=== PATIENT | female | born 1955 | race American Indian/Alaskan Native ===

== ENCOUNTER 2019-04-07 22:44 | Emergency (ER) | payer SELFPAY ==
[2019-04-07] MEDS ORDERED: ONDANSETRON 4 MG ODT TAB PO PRN (23:36)
[2019-04-07] MEDS ORDERED: HALOPERIDOL LACTATE 5 MG/1 ML INJ IM PRN (23:36)
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
[2019-04-08] LABS: Hematocrit 33.4 % (30.3-42.9); Hemoglobin 11.6 gm/dl (10.1-14.3); Mean Corpuscular HGB Conc 35 % (30-34); Mean Corpuscular Volume 102 fl (79-97); Platelet Count 293 K/mm3 (140-440); Red Blood Count 3.28 M/mm3 (3.65-5.03); Red Cell Distribution Width 16.3 % (13.2-15.2)
[2019-04-08 00:18] LABS: Alanine Aminotransferase 20 units/L (7-56); Albumin 4.3 g/dL (3.9-5); BUN/Creatinine Ratio 16; Blood Urea Nitrogen 8 mg/dL (7-17); Calcium 9.4 mg/dL (8.4-10.2); Hemolysis Index 0
--- NOTE | 2019-04-08 00:26 | XRay Report ---
CHEST 1 VIEW INDICATION / CLINICAL INFORMATION: cough n/v. COMPARISON: None available. FINDINGS: SUPPORT DEVICES: None. HEART / MEDIASTINUM: No significant abnormality. LUNGS / PLEURA: No significant pulmonary or pleural abnormality. No pneumothorax. ADDITIONAL FINDINGS: There is an old healed left midclavicular fracture. IMPRESSION: 1. No significant change Signer Name: Larry Burnett MD Signed: 04/08/2019 12:21 AM Workstation Name: [id number]
[2019-04-08 07:29] VITALS: BP 118/76
== END 2019-04-08 07:28 | disposition home or self-care (01) ==
LOC: ED 22:44
DX: F10.129 Alcohol abuse with intoxication, unspecified (principal)
CPT/HCPCS: 36415; 71045; 80053; 80320; 82550; 83735; 85027; 99285; G0480

== ENCOUNTER 2019-11-25 06:20 | Outpatient (CLI) | payer MEDICAID ==
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
== END 2019-11-25 06:21 | disposition home or self-care (01) ==
LOC: XRAY 06:20
PROVIDERS: ATTEND Orthopaedic Surgery
DX: S92.342A Displaced fracture of fourth metatarsal bone, left foot, initial encounter for closed fracture (principal); S92.352A Displaced fracture of fifth metatarsal bone, left foot, initial encounter for closed fracture; S92.912A Unspecified fracture of left toe(s), initial encounter for closed fracture; M19.041 Primary osteoarthritis, right hand; M19.072 Primary osteoarthritis, left ankle and foot; R10.2 Pelvic and perineal pain; M25.522 Pain in left elbow; X58.XXXA Exposure to other specified factors, initial encounter; Y93.89 Activity, other specified; Y92.89 Other specified places as the place of occurrence of the external cause; Y99.8 Other external cause status
CPT/HCPCS: 72170

== ENCOUNTER 2020-02-20 12:19 | Outpatient (CLI) | payer MEDICAID ==
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
== END 2020-02-20 12:20 | disposition home or self-care (01) ==
LOC: XRAY 12:19
PROVIDERS: ATTEND Orthopaedic Surgery
DX: M79.604 Pain in right leg (principal)

== ENCOUNTER 2021-01-25 07:45 | Emergency (ER) | payer MEDICARE ==
[2021-01-25 07:54] VITALS: BP 118/73
[2021-01-25] MEDS ORDERED: KETOROLAC 30 MG/1 ML INJ IM ONE (07:58)
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
== END 2021-01-25 11:29 | disposition home or self-care (01) ==
LOC: ED 07:45
DX: S42.202A Unspecified fracture of upper end of left humerus, initial encounter for closed fracture (principal); I10 Essential (primary) hypertension; J44.9 Chronic obstructive pulmonary disease, unspecified; M81.0 Age-related osteoporosis without current pathological fracture; Z90.710 Acquired absence of both cervix and uterus; F17.200 Nicotine dependence, unspecified, uncomplicated; F12.90 Cannabis use, unspecified, uncomplicated; Y09 Assault by unspecified means; Y93.89 Activity, other specified; Y92.89 Other specified places as the place of occurrence of the external cause; Y99.8 Other external cause status
CPT/HCPCS: 29105; 73060; 73502; 96372; 99283; J1885

== ENCOUNTER 2021-02-22 09:56 | Observation (INO) | payer MEDICARE ==
[2021-02-21 10:47] LABS: Hematocrit 39.4 % (30.3-42.9); Hemoglobin 12.8 gm/dl (10.1-14.3); Mean Corpuscular HGB Conc 33 % (30-34); Mean Corpuscular Volume 110 fl (79-97); Platelet Count 261 K/mm3 (140-440); Red Cell Distribution Width 14.9 % (13.2-15.2)
[2021-02-21 11:05] LABS: Alanine Aminotransferase 18 units/L (7-56); Albumin 4.1 g/dL (3.9-5); Blood Urea Nitrogen 7 mg/dL (7-17); Hemolysis Index 9
[2021-02-21 11:15] LABS: BUN/Creatinine Ratio 18
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
[2021-02-22] MEDS ORDERED: ceFAZolin/Water 2 GM/20 ML 2 GM/20 ML SYRINGE IV NR (10:00)
[2021-02-22] MEDS ORDERED: LACTATED RINGERS 1,000 ML ONE (10:30)
[2021-02-22] MEDS: LACTATED RINGERS 1,000 ML IV SCH ×3 (11:00→23:55)
[2021-02-22] MEDS ORDERED: HYDROmorphone 1 MG/1 ML INJ IV PRN ×2 (11:29)
--- NOTE | 2021-02-22 11:32 | Anesthesia Day of Surgery ---
Anesthesia Day of Surgery - Day of Surgery Patient Examined: Yes Patient H&P Reviewed: Yes Patient is NPO: Yes
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
[2021-02-22] MEDS ORDERED: BUPIVACAINE/PF (0.5%) 5 MG/1 ML 30 ML VIAL INFILTRATI ONE (11:36)
[2021-02-22] MEDS ORDERED: dexAMETHasone 4 MG/ML VIAL ONE (11:36)
[2021-02-22] MEDS ORDERED: propofoL 200 MG/20 ML VIAL IV ONE (11:52)
[2021-02-22] MEDS ORDERED: SUCCINYLCHOLINE CHLORIDE 200 MG/10 ML INJ MDV ONE (11:52)
[2021-02-22] MEDS ORDERED: LIDOCAINE MPF (2%) 20 MG/1 ML VIAL 5 ML ONE (11:52)
[2021-02-22] MEDS ORDERED: ROCURONIUM 50 MG/5 ML INJ IV ONE (11:52)
[2021-02-22] MEDS ORDERED: MIDAZOLAM 2 MG/2 ML INJ IV NR (12:00)
[2021-02-22] MEDS ORDERED: fentaNYL 100 MCG/2 ML INJ IV ONE (12:29)
[2021-02-22] MEDS ORDERED: PANTOPRAZOLE 40 MG TAB PO ONE (12:30)
[2021-02-22] MEDS ORDERED: amLODIPine 10 MG TAB PO ONE (12:31)
[2021-02-22] MEDS ORDERED: fentaNYL 100 MCG/2 ML INJ ONE (13:32)
--- NOTE | 2021-02-22 14:24 | Procedure Note ---
Date of procedure: 02/22/21 Pre-op diagnosis: Displaced left proximal humerus fracture Post-op diagnosis: same Procedure: Closed reduction and insertion of intramedullary nail left proximal humerus Procedure The patient was brought to the OR and placed on the table supine following i nduction and intubation she was placed in the beachchair position. The left upper extremity was then prepped and draped in the usual sterile manner, a timeout procedure was done to identify the patient and the correct operative site. An incision was made over the greater tuberosity and was taken down sharply through skin and subcutaneous the deltoid was split along with the rotator cuff tendon. A threaded guidewire was inserted through a proximal fragment across the fracture site into the distal humeral canal, The canal was reamed to a 11.5 mm diameter this was followed by insertion of the short humeral nail measuring 8mm x 150 mm length under C-arm fluoroscopy. Using the targeting device the proximal screws were inserted into the humeral head and this was followed by gentle traction on the distal fragment along with insertion of 2 distal interlocking screws. Again AP and lateral views were obtained and showed good reduction of the fracture and placement of hardware. Following this the wound was copiously irrigated with saline solution followed by closure of the wound. Postop dressings were applied as well as an arm sling, she tolerated the procedure without complications and she was sent to postanesthesia recovery in stable condition Anesthesia: GETA Surgeon: JAS HEARD (Elza Peralta. 1st assist) Estimated blood loss: 50-100ml Pathology: none Condition: stable Disposition: PACU
[2021-02-22] MEDS ORDERED: ONDANSETRON 4 MG/2 ML INJ ONE (14:29)
[2021-02-22] MEDS ORDERED: SODIUM CHLORIDE 0.9% IRR 1,500 ML BOTTLE IR ONE (14:31)
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
--- NOTE | 2021-02-22 16:08 | Post Anesthesia Evaluation ---
- Post Anesthesia Evaluation Patient Participated: Yes Airway Patent: Yes Stable Respiratory Function: Yes Nausea/Vomiting: No Temp > 96.8F: Yes Pain Manageable: Yes Adequeate Hydration: Yes Anesthesia Complications: No Block Receding Appropriately: Yes Patient on Ventilator: No
[2021-02-22] MEDS: ONDANSETRON 4 MG/2 ML INJ IV PRN (23:53)
[2021-02-23] MEDS: MORPHINE 4 MG/1 ML INJ IV PRN ×4 (03:06→20:21)
[2021-02-23] MEDS: KETOROLAC 30 MG/1 ML INJ IV PRN ×2 (06:28→22:37)
--- NOTE | 2021-02-23 14:39 | Progress Note ---
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
[2021-02-23] MEDS: LACTATED RINGERS 1,000 ML IV SCH (20:22)
[2021-02-24] MEDS: ONDANSETRON 4 MG/2 ML INJ IV PRN (04:18)
[2021-02-24] MEDS: MORPHINE 4 MG/1 ML INJ IV PRN ×3 (04:18→13:51)
[2021-02-24 13:48] VITALS: BP 133/84
== END 2021-02-24 19:10 | disposition home or self-care (01) ==
LOC: OR 09:56 → 3A 14:13
PROVIDERS: ADMIT Orthopaedic Surgery; ATTEND Orthopaedic Surgery
DX: S42.202A Unspecified fracture of upper end of left humerus, initial encounter for closed fracture (principal); Z20.822 Contact with and (suspected) exposure to COVID-19; I10 Essential (primary) hypertension; K21.9 Gastro-esophageal reflux disease without esophagitis; F41.9 Anxiety disorder, unspecified; M81.0 Age-related osteoporosis without current pathological fracture; F32.9 Major depressive disorder, single episode, unspecified; F17.210 Nicotine dependence, cigarettes, uncomplicated; Z86.19 Personal history of other infectious and parasitic diseases; Z85.43 Personal history of malignant neoplasm of ovary; Z79.899 Other long term (current) drug therapy; Z98.890 Other specified postprocedural states; Y08.89XA Assault by other specified means, initial encounter; Y92.89 Other specified places as the place of occurrence of the external cause; Y93.89 Activity, other specified; Y99.8 Other external cause status
CPT/HCPCS: 23615; 36415; 64415; 73060; 80053; 85027; 96374; 96375; 96376; 97162; C1713; C1769; G0378; J0330; J0690; J1100; J1170; J1885; J2250; J2270; J2405; J2704; J3010; J3490; J7120; U0003; 64450

== ENCOUNTER 2021-03-25 10:32 | Outpatient (CLI) | payer MEDICARE ==
--- NOTE | 2021-03-25 13:13 | XRay Report ---
LEFT WRIST 3 VIEWS INDICATION / CLINICAL INFORMATION: Pain in left wrist. COMPARISON: None available. FINDINGS: This exam is limited by suboptimal positioning of the wrist. BONES and JOINT(S): No acute displaced fracture or dislocation. There is an old avulsion fracture of the ulnar styloid. No significant arthritis. Previously placed wires are noted along the proximal pha lanx of the middle finger. SOFT TISSUES: No significant abnormality. ADDITIONAL FINDINGS: None. IMPRESSION: 1. Limited left wrist series without identification of acute findings. 2. Additional findings as above. LEFT HUMERUS 3 VIEWS INDICATION / CLINICAL INFORMATION: FRACTURE OF UPPER END OF LEFT HUMERUS COMPARISON: Intraoperative fluoroscopy of the left humerus from 02/22/2021. Left humerus series from 02/21/2021. FINDINGS: BONES and JOINT(S): The previously seen fracture of the proximal third of the left humeral shaft is u nchanged in alignment. There is expected positioning of internal fixation of the proximal left humeru s, which appears intact. No new acute displaced fracture or dislocation is seen. No significant arthr itis. SOFT TISSUES: No significant abnormality. ADDITIONAL FINDINGS: None. IMPRESSION: 1. No new acute abnormality of the left humerus. 2. Additional findings as above. Signer Name: Abelardo Riggins MD Signed: 03/25/2021 1:08 PM Workstation Name: [id number]
== END 2021-03-25 10:33 | disposition home or self-care (01) ==
LOC: XRAY 10:32
PROVIDERS: ATTEND Orthopaedic Surgery
DX: S42.202A Unspecified fracture of upper end of left humerus, initial encounter for closed fracture (principal); M25.532 Pain in left wrist; X58.XXXA Exposure to other specified factors, initial encounter; Y93.89 Activity, other specified; Y92.89 Other specified places as the place of occurrence of the external cause; Y99.8 Other external cause status

== ENCOUNTER 2021-04-25 06:57 | Outpatient (CLI) | payer MEDICARE ==
--- NOTE | 2021-04-25 09:52 | XRay Report ---
Left knee 2 views INDICATION: Pain FINDINGS: Alignment appears normal. No acute fracture dislocation. No large joint effusion Signer Name: Arthur Ortiz MD Signed: 04/25/2021 9:48 AM Workstation Name: [id number]
--- NOTE | 2021-04-25 09:56 | XRay Report ---
Right hand 3 views INDICATION: Right hand pain FINDINGS: Old fracture deformity within the right fifth metacarpal physeal. MCP joints and IP joints appear intact. Mild degenerative change throughout IP joints. No acute fracture is identified. Small area of cortical density adjacent to the radial aspect of the MCP joint of the fifth finger is again noted. Signer Name: Arthur Ortiz MD Signed: 04/25/2021 9:52 AM Workstation Name: [id number]
--- NOTE | 2021-04-25 10:01 | XRay Report ---
RIBS BILATERAL4 VIEWS INDICATION: R07.82. COMPARISON: None. IMPRESSION: No displaced rib deformity or rib lesion is detected on x-ray. The lungs are mildly hyp erinflated but clear. There is moderate thoracolumbar scoliosis with mild degenerative changes. Signer Name: Wil Tadeo Jr, MD Signed: 04/25/2021 9:56 AM Workstation Name: [id number]
== END 2021-04-25 06:58 | disposition home or self-care (01) ==
LOC: XRAY 06:57
PROVIDERS: ATTEND Orthopaedic Surgery
DX: M19.041 Primary osteoarthritis, right hand (principal); R07.82 Intercostal pain; M25.562 Pain in left knee; M41.85 Other forms of scoliosis, thoracolumbar region; M47.814 Spondylosis without myelopathy or radiculopathy, thoracic region
CPT/HCPCS: 71110

== ENCOUNTER 2021-06-03 14:00 | Outpatient (CLI) | payer MEDICARE ==
--- NOTE | 2021-06-03 17:47 | XRay Report ---
CHEST WITH BILATERAL RIBS 5 VIEWS 1044 INDICATION: R07.82 INTERCOSTAL PAIN COMPARISON: Portable chest x-ray 04/07/2019 FINDINGS: Lung guerrier are blurred by motion. No obvious focal infiltrates are seen. Mild chronic cutler ges are noted. No pleural effusions are seen. No pneumothorax is noted. Thoracolumbar scoliosis is noted. No fracture is seen of the lateral aspect of the right seventh rib with mild callus formation. No other definite acute right-sided fractures are seen. The posterior lat eral aspects of the right sixth and seventh ribs show possible old fracture sites. Old left rib fract ures are seen at 2 sites. Signer Name: Nicolás Head MD Signed: 06/03/2021 5:43 PM Workstation Name: [email or web address]
== END 2021-06-03 14:01 | disposition home or self-care (01) ==
LOC: XRAY 14:00
PROVIDERS: ATTEND Orthopaedic Surgery
DX: R07.82 Intercostal pain (principal); M41.85 Other forms of scoliosis, thoracolumbar region
CPT/HCPCS: 71110

== ENCOUNTER 2021-06-09 10:26 | Outpatient (CLI) | payer MEDICARE ==
--- NOTE | 2021-06-09 13:25 | Mammography Report ---
DEXA BONE DENSITY SCAN INDICATION / CLINICAL INFORMATION: OSTEOPOROSIS. 65 years Female COMPARISON: None available. LUMBAR SPINE, L1-L4: - Bone mineral density (BMD) = 0.760 g/cm2. - T-score = -2.5 - Change (%) since most recent prior (if available): None available. LEFT HIP, NECK : - Bone mineral density (BMD) = 0.581 g/cm2. - T-score = -2.4 - Change (%) since most recent prior (if available): None available. IMPRESSION: 1. WHO Classification: Osteoporosis. Fracture Risk: High. 2. 10-Year Fracture Risk (FRAX) = Major Osteoporotic Not reported.% / Hip: Not reported.% FRAX generally not reported for patients with normal or osteoporotic BMD, in uqx-izndbnz-wsoynvx kai ents younger than age 50, or in patients undergoing pharmacotherapy BMD Reporting Guidelines (ISCD, 2015) BMD Reporting in Postmenopausal Women and in Men Age 50 and Older - T-scores are preferred. - The WHO densitometric classification is applicable. BMD Reporting in Females Prior to Menopause and in Males Younger Than Age 50 - Z-scores, not T-scores, are preferred. This is particularly important in children. - A Z-score of -2.0 or lower is defined as below the expected range for age, and a Z-score above -2.0 is within the expected range for age. - Osteoporosis cannot be diagnosed in men under age 50 on the basis of BMD alone. - The WHO diagnostic criteria may be applied to women in the menopausal transition. http://www.iscd.org/official-positions/6025-yxfw-hfoblbyf-positions-adult/ Signer Name: Javier Ga MD Signed: 06/09/2021 1:21 PM Workstation Name: [email or web address]
== END 2021-06-09 10:27 | disposition home or self-care (01) ==
LOC: MAMMO 10:26
PROVIDERS: ATTEND Orthopaedic Surgery
DX: M81.0 Age-related osteoporosis without current pathological fracture (principal); R92.8 Other abnormal and inconclusive findings on diagnostic imaging of breast
CPT/HCPCS: 77080

== ENCOUNTER 2021-07-12 12:20 | Outpatient (CLI) | payer MEDICARE ==
--- NOTE | 2021-07-12 15:06 | XRay Report ---
XR knees standing AP Bilateral INDICATION / CLINICAL INFORMATION: M25.562 BILATERAL KNEE PAIN. COMPARISON: X-rays on 04/25/2021 FINDINGS: BONES/JOINT(S): No acute fracture or subluxation. No significant degenerative changes. No focal bone erosions or focal osteopenia to suggest inflammatory arthropathy. SOFT TISSUES: No significant abnormality. ADDITIONAL FINDINGS: None. Signer Name: Nba Young MD Signed: 07/12/2021 3:02 PM Workstation Name: [email or web address]
== END 2021-07-12 12:21 | disposition home or self-care (01) ==
LOC: XRAY 12:20
PROVIDERS: ATTEND Orthopaedic Surgery
DX: S42.202A Unspecified fracture of upper end of left humerus, initial encounter for closed fracture (principal); X58.XXXA Exposure to other specified factors, initial encounter; Y93.89 Activity, other specified; Y92.89 Other specified places as the place of occurrence of the external cause; Y99.8 Other external cause status
CPT/HCPCS: 73565

== ENCOUNTER 2021-08-10 09:15 | Emergency (ER) | payer MEDICARE | END 2021-08-10 10:30 | disposition left against medical advice (07) | LOC: ED 09:15 | DX: Z00.00 Encounter for general adult medical examination without abnormal findings (principal); Z53.21 Procedure and treatment not carried out due to patient leaving prior to being seen by health care provider ==

== ENCOUNTER 2021-08-16 09:08 | Outpatient (CLI) | payer MEDICARE ==
--- NOTE | 2021-08-16 10:44 | XRay Report ---
LEFT HUMERUS 2 VIEWS INDICATION / CLINICAL INFORMATION: S42.A UNSPECIFIED FRACTURE OF UPPER END LEFT HUMERUS COMPARISON: Left humerus series from 03/25/2021. FINDINGS: BONES and JOINT(S): There are stable internal fixation of the proximal left humerus with evidence of interval healing of the proximal shaft fracture. No new acute findings. SOFT TISSUES: No significant abnormality. ADDITIONAL FINDINGS: None. IMPRESSION: 1. No acute findings. 2. Stable internal fixation of the left humerus with evidence of interval healing of the proximal hum eral shaft fracture. Signer Name: Abelardo Riggins MD Signed: 08/16/2021 10:39 AM Workstation Name: [email or web address]
== END 2021-08-16 09:09 | disposition home or self-care (01) ==
LOC: XRAY 09:08
PROVIDERS: ATTEND Orthopaedic Surgery
DX: S42.202A Unspecified fracture of upper end of left humerus, initial encounter for closed fracture (principal); X58.XXXA Exposure to other specified factors, initial encounter; Y93.89 Activity, other specified; Y92.89 Other specified places as the place of occurrence of the external cause; Y99.8 Other external cause status

== ENCOUNTER 2021-10-19 11:36 | Outpatient (CLI) | payer MEDICARE ==
--- NOTE | 2021-10-19 13:28 | XRay Report ---
LEFT HUMERUS 2 VIEW(S) INDICATION / CLINICAL INFORMATION: M79.602 COMPARISON: 08/16/2021 FINDINGS: BONES / JOINT(S): No acute fracture or subluxation. No significant arthritis. Patient is status post intramedullary nail through the proximal humerus. The hardware is well seated without hardware compli cation. Mild heterotopic calcification along the medial aspect of the proximal humerus. SOFT TISSUES: No significant abnormality. ADDITIONAL FINDINGS: None. Signer Name: Thierno Adan DO Signed: 10/19/2021 1:23 PM Workstation Name: [email or web address]
== END 2021-10-19 11:37 | disposition home or self-care (01) ==
LOC: XRAY 11:36
PROVIDERS: ATTEND Orthopaedic Surgery
DX: S42.202D Unspecified fracture of upper end of left humerus, subsequent encounter for fracture with routine healing (principal); M79.602 Pain in left arm; X58.XXXD Exposure to other specified factors, subsequent encounter

== ENCOUNTER 2021-11-03 08:35 | Emergency (ER) | payer MEDICARE ==
--- NOTE | 2021-11-03 10:08 | Emergency Department Report ---
ED Fall HPI - General Chief Complaint: Extremity Injury, Upper Stated Complaint: SHOULDER PAIN Time Seen by Provider: 11/03/21 10:08 Source: patient Mode of arrival: Ambulatory - History of Present Illness Initial Comments: Patient is a 66-year-old female that comes to the emergency room after falling 4 days ago. She was intoxicated at the time. Today she presented to her primary care doctor lesa chavez and he was concerned so he sent her to the emergency room. He is concerned that she might have a rib fracture. He is recommended chest CT. Patient states that it was her birthday and she had too much to drink and she fell on her left side she tried to break her fall with her left hand and is complaining of left hand pain. Patient is ambulatory to the ER. She states that she is having anterior chest wall pain. Is worse with a deep breath. MD Complaint: fall -: Sudden, days(s) Fall From: standing When Fall Occurred: # days VASCULAR TECH (4) Fall Witnessed: yes, by family Place Fall Occurred: home Loss of Consciousness: none Prolonged Down Time?: no Symptoms Prior to Fall: none Location: other (Left chest and arm) Severity: mild Severity scale (0 -10): 2 Quality: aching Context: tripped/slipped, other (While drinking) Associated Symptoms: denies. denies: headache, neck pain, numbness, weakness, shortness of breath, abdominal pain, hematuria, unable to walk, lightheaded, vertigo, confusion - Related Data Home Medications Medication Instructions Recorded Confirmed Last Taken Albuterol Sulfate [Proventil Hfa] 2 puff IH PRN PRN 02/18/21 02/22/21 02/21/21 09:00 amLODIPine [Norvasc] 10 mg PO DAILY 02/18/21 02/22/21 02/22/21 11:52 Hydrochlorothiazide 12.5 mg PO DAILY 02/22/21 02/22/21 02/21/21 09:00 Omeprazole 20 mg PO DAILY 02/22/21 02/22/21 02/21/21 09:00 Terbinafine HCl 1 tab PO DAILY 02/22/21 02/22/21 02/21/21 09:00 Previous Rx's Medication Instructions Recorded Last Taken Type HYDROcodone/APAP 5-325 [Mize 1 each PO Q6HR PRN #15 tablet 01/25/21 Unknown Rx 5/325] Oxycodone HCl/Acetaminophen 1 each PO Q6HR PRN #30 02/22/21 Unknown Rx [Percocet 10/325 mg] Allergies Allergy/AdvReac Type Severity Reaction Status Date / Time No Known Allergies Allergy Verified 02/18/21 16:41 ED Review of Systems ROS: Stated complaint: SHOULDER PAIN Other details as noted in HPI Comment: All other systems reviewed and negative ED Past Medical Hx - Past Medical History Previous Medical History?: Yes Hx Hypertension: Yes Hx GERD: Yes Hx Liver Disease: Yes (HEP C) Hx Arthritis: Yes Hx Headaches / Migraines: (FREQUENT SANTANA) Hx Asthma: Yes Hx COPD: Yes (INHALER PRN) Hx Tuberculosis: Yes (+ SKIN TEST,NO TX , NEG CXR "YEARS AGO") Additional medical history: osteoporosis - Surgical History Past Surgical History?: Yes Additional Surgical History: hysterectomy left humeral orif 02/2021 - Family History Family history: no significant - Social History Smoking Status: Current Every Day Smoker Substance Use Type: Alcohol - Medications Home Medications: Home Medications Medication Instructions Recorded Confirmed Last Taken Type HYDROcodone/APAP 5-325 [Mize 1 each PO Q6HR PRN #15 tablet 01/25/21 02/18/21 Unknown Rx 5/325] Albuterol Sulfate [Proventil Hfa] 2 puff IH PRN PRN 02/18/21 02/22/21 02/21/21 09:00 History amLODIPine [Norvasc] 10 mg PO DAILY 02/18/21 02/22/21 02/22/21 11:52 History Hydrochlorothiazide 12.5 mg PO DAILY 02/22/21 02/22/21 02/21/21 09:00 History Omeprazole 20 mg PO DAILY 02/22/21 02/22/21 02/21/21 09:00 History Oxycodone HCl/Acetaminophen 1 each PO Q6HR PRN #30 02/22/21 Unknown Rx [Percocet 10/325 mg] Terbinafine HCl 1 tab PO DAILY 02/22/21 02/22/21 02/21/21 09:00 History ED Physical Exam - General Limitations: No Limitations General appearance: alert, in no apparent distress - Head Head exam: Present: atraumatic, normocephalic - Eye Eye exam: Present: normal appearance - ENT ENT exam: Present: mucous membranes moist - Neck Neck exam: Present: normal inspection - Respiratory Respiratory exam: Present: normal lung sounds bilaterally, rhonchi, chest wall tenderness. Absent: respiratory distress, wheezes, rales, stridor, accessory muscle use, decreased breath sounds, prolonged expiratory - Cardiovascular Cardiovascular Exam: Present: regular rate, normal rhythm. Absent: bradycardia, tachycardia, systolic murmur, diastolic murmur, rubs, gallop - GI/Abdominal GI/Abdominal exam: Present: soft, normal bowel sounds - Extremities Exam Extremities exam: Present: normal inspection - Expanded Upper Extremity Exam Left Shoulder Exam: Present: normal inspection Upper Arm exam: Present: normal inspection Elbow exam: Present: normal inspection Forearm Wrist exam: Present: normal inspection Hand Wrist exam: Present: normal inspection, full ROM. Absent: tenderness, swelling, abrasion, laceration, ecchymosis, deformity, crepidus - Back Exam Back exam: Present: normal inspection - Neurological Exam Neurological exam: Present: alert, oriented X3 - Psychiatric Psychiatric exam: Present: normal affect, normal mood - Skin Skin exam: Present: warm, dry, intact, normal color. Absent: rash ED Course Vital Signs 11/03/21 08:46 Temperature 98.1 F Pulse Rate 100 H Respiratory 18 Rate Blood Pressure 141/102 [Right] ED Medical Decision Making - Lab Data Result diagrams: 11/03/21 10:18 - Radiology Data Radiology results: report reviewed, image reviewed No acute process - Medical Decision Making Labs 11/03/21 10:18 WBC 4.0 L RBC 3.33 L Hgb 13.0 Hct 36.8 MCV 110 H MCH 39 H MCHC 35 H RDW 15.8 H Plt Count 326 Vital Signs 11/03/21 08:46 Temperature 98.1 F Pulse Rate 100 H Respiratory 18 Rate Blood Pressure 141/102 [Right] Medicated with Motrin for pain. Neurologically intact. Full range of motion of her hand and arm. No abrasions lacerations or ecchymosis noted on exam Patient taking p.o. Patient has been advised to stop smoking and drinking Patient being discharged home with discharge plan of care including diet, activity, medications and follow-up. She verbalizes understanding of plan of care. - Differential Diagnosis Rule out rib fracture, hand fracture Critical care attestation.: If time is entered above; I have spent that time in minutes in the direct care of this critically ill patient, excluding procedure time. ED Disposition Clinical Impression: Alcohol use, Tobacco abuse, Hx of primary hypertension Fall Qualifiers: Encounter type: initial encounter Qualified Code(s): W19.XXXA - Unspecified fall, initial encounter Contusion Qualifiers: Encounter type: initial encounter Disposition: HOME / SELF CARE / HOMELESS Is pt being admited?: No Does the pt Need Aspirin: No Condition: Stable Instructions: Contusion, [id number] Additional Instructions: [id number] Motrin or Tylenol for pain. Follow back up with your primary care doctor. All of your imaging was normal today. Avoid alcohol. Continue your home medications Diet and activity as tolerated Stay well-hydrated with water Your blood pressure was elevated today, continue to follow it and follow-up with your primary care. Referrals: HECTOR SCHILLING MD [Primary Care Provider] - 3-5 Days Time of Disposition: 11:53
--- NOTE | 2021-11-03 11:22 | XRay Report ---
LEFT HAND 3 VIEWS INDICATION: pain. COMPARISON: None. IMPRESSION: No acute osseous or soft tissue abnormality. The proximal phalanx of the third digit is shortened with evidence of previous surgical intervention, correlate with history. No significant joint pathology is demonstrated. Signer Name: Wil Tadeo Jr, MD Signed: 11/03/2021 11:18 AM Workstation Name: [id number]
--- NOTE | 2021-11-03 11:23 | Cat Scan Report ---
CT CHEST WITHOUT CONTRAST INDICATION / CLINICAL INFORMATION: Chest pain after fall. TECHNIQUE: Axial CT images were obtained through the chest without contrast. [facility] CT dose reduction for ALARA by means of automated exposure control. COMPARISON: None available. FINDINGS: HEART: No significant abnormality. CORONARY ARTERY CALCIFICATION: Present -- Moderate. THORACIC AORTA: Mild atherosclerotic calcification without acute abnormality. MEDIASTINUM / SAMM: No significant abnormality. PLEURA: No pleural effusion. No pneumothorax. LUNGS: No acute air space or interstitial disease. Moderate emphysema. ADDITIONAL FINDINGS: None. UPPER ABDOMEN: No significant abnormality. SKELETAL SYSTEM: No appreciable acute fractures. There are several healing subacute to chronic right rib fractures. IMPRESSION: 1. No appreciable acute fracture. Multiple subacute to chronic healing right rib fractures. Signer Name: Nba Young MD Signed: 11/03/2021 11:19 AM Workstation Name: [email or web address]
[2021-11-03 11:49] LABS: Hematocrit 36.8 % (30.3-42.9); Mean Corpuscular HGB Conc 35 % (30-34); Mean Corpuscular Volume 110 fl (79-97); Platelet Count 326 K/mm3 (140-440); Red Blood Count 3.33 M/mm3 (3.65-5.03); Red Cell Distribution Width 15.8 % (13.2-15.2)
[2021-11-03] MEDS ORDERED: IBUPROFEN 800 MG TAB PO ONE (11:53)
[2021-11-03 12:03] LABS: Alanine Aminotransferase 18 units/L (7-56); Albumin 4.2 g/dL (3.9-5); Blood Urea Nitrogen 4 mg/dL (7-17); Calcium 9.2 mg/dL (8.4-10.2); Hemolysis Index 0
[2021-11-03 12:05] LABS: BUN/Creatinine Ratio 10
[2021-11-03 12:17] VITALS: BP 139/93
== END 2021-11-03 12:55 | disposition home or self-care (01) ==
LOC: ED 08:35
DX: S60.222A Contusion of left hand, initial encounter (principal); F10.10 Alcohol abuse, uncomplicated; Y90.9 Presence of alcohol in blood, level not specified; I10 Essential (primary) hypertension; K21.9 Gastro-esophageal reflux disease without esophagitis; K76.9 Liver disease, unspecified; M19.90 Unspecified osteoarthritis, unspecified site; G43.909 Migraine, unspecified, not intractable, without status migrainosus; J45.909 Unspecified asthma, uncomplicated; A15.9 Respiratory tuberculosis unspecified; Z79.899 Other long term (current) drug therapy; W19.XXXA Unspecified fall, initial encounter; Y93.89 Activity, other specified; Y92.89 Other specified places as the place of occurrence of the external cause; Y99.8 Other external cause status
CPT/HCPCS: 36415; 71250; 80053; 85027; 99284